=== PATIENT | male | born 1975 | race Caucasian/White ===

== ENCOUNTER → 2017-01-06 | Outpatient (CLI) | payer OTHER ==
[~2017-01-06] MED LIST: BENTYL10 MG PO; LOMOTIL TABLET1 TAB PO; NO MEDICATIONS; PREDNISONE PO; VICODIN
--- NOTE | ~2017-01-06 | CR236 ---
[facility] A Service of [facility] & [facility] RADIOLOGY TEXT RESULTS PATIENT: IGOR PUENTE LOCATION: [facility] : 77 UNIT #: [id number] AGE: [address]: MUNA KRAMER APRN SEX: M ORDER DR: [id number] [facility] [address] [place], [place] [address] [id number] O MR#: [id number] Acc #: [id number] NAME: IGOR PUENTE : 1975 SEX: M STUDY DATE/TIME: 01/06/2017 9:51 UNIT: [facility] ROOM: STUDY DESCRIPTION: CR Small Bowel Sbft W Films Attending Physician: Muna Kramer Aprn Referring Physician: Muna Kramer Aprn Ordering Physician: Muna Kramer Aprn Primary Care Physician: Oleg Palma M.D. MEDICAL IMAGING REPORT This report is preliminary unless electronic signature is present EXAM Small bowel follow-through INDICATIONS 41-year-old male with abdominal pain and bloating. History of Crohn disease. Symptoms for 6 years. TECHNIQUE Fluoroscopy time was 1.2 minutes. 8 fluoroscopic images were taken. FINDINGS Small bowel transit time is normal. No dilated loops of small bowel. No evidence for fold thickening. Terminal ileum appears to be within normal limits. IMPRESSION Normal small bowel follow-through. Dictated by... Marcelino Jacques M.D. THIS IS AN ELECTRONICALLY VERIFIED REPORT Marcelino Jacques M.D. at 01/07/2017 9:47 AM PALLAVI/anisa TD: 01/06/2017 20:17 JOB #: [id number] MEDICAL IMAGING REPORT Page 1 of 1 COPY
== END | disposition home or self-care (01) ==
LOC: CRAD 09:43
DX: K50.10 Crohn's disease of large intestine without complications (principal); R10.31 Right lower quadrant pain; R10.32 Left lower quadrant pain
CPT/HCPCS: 74250

== ENCOUNTER → 2017-04-24 | Outpatient (CLI) | payer OTHER ==
[2017-04-24 16:50] LABS: URINE APPEARANCE CLEAR; URINE BILIRUBIN NEG (NEG); URINE BLOOD NEG (NEG); URINE COLOR YELLOW; URINE GLUCOSE NEG (NEG); URINE KETONE NEG (NEG); URINE LEUKOCYTE ESTERASE NEG (NEG); URINE NITRATE NEG (NEG); URINE PH 5.5 (5-8); URINE PROTEIN NEG (NEG); URINE UROBILINOGEN 0.2 MG/DL (NEG)
[2017-04-24 16:58] LABS: URINE SOURCE CLEAN CATCH
[2017-04-24 16:59] LABS: CULTURE INDICATED? NO
== END | disposition home or self-care (01) ==
LOC: CLAB 15:03
PROVIDERS: Nurse Practitioner
DX: R30.0 Dysuria (principal)
CPT/HCPCS: 81003